=== PATIENT | female | born 1940 | race Caucasian/White ===

== ENCOUNTER 2016-05-16 17:11 | Emergency (ER) | payer OTHER ==
[2016-05-16 17:20] VITALS: BP 150/99; PULSE 95; RESP 18; TEMP 97.2; O2SAT 92
--- NOTE | 2016-05-16 17:21 | EDPHY ---
H & P Time Seen by Provider: 05/16/16 17:18 HPI/ROS: CHIEF COMPLAINT: Known DVT HISTORY OF PRESENT ILLNESS: 75-year-old female diagnosed with a DVT to the right lower extremity on outpatient [facility] ultrasound. She saw her primary care provider today, had an outpatient ultrasound obtained of right lower extremity as she has noticed 2 weeks of right ankle and calf swelling. Atraumatic. No history of mobilization or trauma. No long distance travel. No chest pain. She has a history of chronic dyspnea secondary to COPD and denies new dyspnea. No back pain. No syncope. No near syncope. No history of thromboembolic disorder. Patient was sent to the emergency department after ultrasound for further evaluation PRIMARY CARE PROVIDER: Dr. Berta Rogel , [facility] REVIEW OF SYSTEMS: A ten point review of systems was performed and is negative with the exception of the items mentioned in the HPI PAST MEDICAL & SURGICAL HISTORY: COPD SOCIAL HISTORY:nonsmoker PHYSICAL EXAM (Prior to examination, patient consented to physical exam, hands were washed and my usual and customary physical exam procedures followed) 1) GENERAL: Well-developed, well-nourished, alert and oriented. Appears to be in no acute distress. observed ambulating stable steady gait. Appears comfortable. 2) HEAD: Normocephalic, atraumatic 3) HEENT: Pupils equal, round, reactive to light bilaterally. Sclera anicteric. 4) NECK: Full range of motion, no meningeal signs. 5) LUNGS: Clear auscultation bilaterally, no wheezes, no rhonchi, no retractions. 6) HEART: Regular rate and rhythm, no murmur, no heave, no gallop. 7) ABDOMEN: No guarding, no rebound, no focal tenderness, negative McBurney's, negative Burkett's, negative Rovsing's, negative peritoneal sign, 8) MUSCULOSKELETAL: Right lower extremity: There is visible asymmetry to the right calf and the left calf. Compartments are soft. DP PT pulses bilaterally are brisk. Capillary refill is brisk. Color and temperature normally distally. 9) BACK: No CVA tenderness 10) SKIN: No rash, no petechiae. 11) Psychiatric: Patient is oriented X 3, there is no agitation. DIFFERENTIAL DIAGNOSIS: In no particular include but limited to DVT, phlegmasia cerulea dolens, phlegmasia alba dolens , arterial occlusion, compartment syndrome Constitutional: Initial Vital Signs Temperature (C) 36.2 C 05/16/16 17:18 Heart Rate 95 05/16/16 17:18 Respiratory Rate 18 05/16/16 17:18 Blood Pressure 150/99 H 05/16/16 17:18 O2 Sat (%) 92 05/16/16 17:18 O2 Delivery Mode Room Air Allergies/Adverse Reactions: No Known Allergies Allergy (Unverified 05/16/16 17:17) Home Medications: Medication Instructions Recorded Albuterol Hfa Anes Only [Proair 05/16/16 Hfa Icu (*)] Aspirin EC [Aspirin EC 81 mg (*)] 81 mg PO DAILY 05/16/16 Lisinopril [Zestril 20 mg (*)] 20 mg PO 05/16/16 Rivaroxaban [Xarelto 15mg (*)] 15 mg PO BID #0 tab 05/16/16 Medical Decision Making - Diagnostics Imaging: Right Lower Extremity Ultrasound and Venous Duplex Doppler Study History: Swelling. Comparison: None available. Technique: High frequency transducer was used for imaging and Doppler study of the veins of the lower extremity. Pulsed Doppler and color Doppler were utilized, along with various maneuvers to assess flow in the veins. Findings: There is DVT extending from the popliteal vein through the posterior tibial and peroneal veins throughout the calf. The common femoral and femoral veins are patent. The greater saphenous vein is patent. Subcutaneous edema is noted in the calf. Impression: DVT extending from the popliteal vein through the calf veins. Findings discussed with Zoie Greene's MA, 05/16/2016 at 16:52. At the request of the ordering clinician, the patient will be escorted to the ER. Findings were subsequently communicated to Fernanda Sagastume in the ED May 16, 2016at 1655 hours. Dictated By: Bruce Black MD Images reviewed by myself ED Course/Re-evaluation: Discussed case Dr. Fernanda Sagastume in the ER. Spoke with the on-call provider at [facility], Dr. Verna Fuentes at 5:42 p.m. who recommended starting the patient on Xarelto. Discussed the indications risks benefits of this medication with the patient and she is in agreement and consents. Patient given my usual and customary anticoagulant therapy precautions and instructions. Departure - Departure Disposition: Home, Routine, Self-Care Clinical Impression: Right leg DVT Qualifiers: Affected thrombotic vein of extremity: popliteal Chronicity: acute Qualified Code(s): I82.431 - Acute embolism and thrombosis of right popliteal vein Condition: Good Instructions: Deep Venous Thrombosis (ED) Additional Instructions: Return to the ER if you developed chest pain, shortness of breath, worsening leg swelling, leg discoloration. Do not engage in activities the high risk of falling or hitting her head. If you do hit your head I recommend you seek immediate medical attention. Prescriptions: Rivaroxaban [Xarelto 15mg (*)] 15 mg PO BID #0 tab
[2016-05-16] MEDS ORDERED: RIVAROXABAN 15 MG TAB PO ONE (17:54)
[2016-05-16 17:55] LABS: ADD DIFF? NO; ADD MORPH? NO; ADD SCAN? NO; ATYPICAL LYMPHOCYTE FLAG 30 (0-99); FRAGMENT RBC FLAG 0 (0-99); HEMATOCRIT 44.9 % (38.0-47.0); HEMOGLOBIN 15.8 g/dL (12.6-16.3); LEFT SHIFT FLG 0 (0-99); LIPEMIA HEMOLYSIS FLAG 90 (0-99); MEAN CELL HEMOGLOBIN 35.2 pg (27.9-34.1); MEAN CELL HEMOGLOBIN CONCENTR. 35.2 g/dL (32.4-36.7); PLATELET CLUMPS FLAG 0 (0-99); PLATELET COUNT 132 10^3/uL (150-400); RED BLOOD CELL COUNT 4.49 10^6/uL (4.18-5.33); RED CELL DISTRIBUTION WIDTH 13.7 % (11.5-15.2)
[2016-05-16 18:04] LABS: INR 0.96 (0.83-1.16); PROTIME(PATIENT) 12.7 SEC (12.0-15.0)
[2016-05-16 18:05] LABS: APTT 25.2 SEC (23.0-38.0)
[2016-05-16 18:08] LABS: ANION GAP 8 mEq/L (8-16); CALCIUM 10.4 mg/dL (8.5-10.4); CARBON DIOXIDE 25 mEq/l (22-31); CHLORIDE 104 mEq/L (97-110); CREATININE 0.7 mg/dL (0.6-1.0); GLOMERULAR FILTRATION RATE > 60; GLUCOSE 104 mg/dL (70-100); POTASSIUM 4.4 mEq/L (3.5-5.2); SODIUM 137 mEq/L (134-144)
== END 2016-05-16 18:06 | disposition home or self-care (01) ==
DX: I82.431 Acute embolism and thrombosis of right popliteal vein (principal); J44.9 Chronic obstructive pulmonary disease, unspecified

== ENCOUNTER → 2016-09-21 | Outpatient (CLI) | payer OTHER | LOC: FIMAGING 10:27 | PROVIDERS: ATTEND Nurse Practitioner | DX: R05 Cough (principal); Z87.891 Personal history of nicotine dependence; Z86.718 Personal history of other venous thrombosis and embolism ==

== ENCOUNTER → 2016-10-17 | Outpatient (CLI) | payer OTHER | LOC: FIMAGING 14:27 | PROVIDERS: ATTEND Internal Medicine Hematology & Oncology | DX: M79.89 Other specified soft tissue disorders (principal); Z86.718 Personal history of other venous thrombosis and embolism ==

== ENCOUNTER → 2016-11-05 | Outpatient (CLI) | payer OTHER ==
[~2016-11-05] MED LIST: IOPAMIDOL (ISOVUE 370) 100 ML BTL IV ONE
== END ==
LOC: FIMAGING 13:09
PROVIDERS: ATTEND Internal Medicine Hematology & Oncology
DX: J43.9 Emphysema, unspecified (principal); I25.10 Atherosclerotic heart disease of native coronary artery without angina pectoris
CPT/HCPCS: 71275; Q9967

== ENCOUNTER → 2017-01-09 | Outpatient (CLI) | payer OTHER | LOC: FIMAGING 13:06 | PROVIDERS: ATTEND Neurological Surgery | DX: M51.36 Other intervertebral disc degeneration, lumbar region (principal); M51.37 Other intervertebral disc degeneration, lumbosacral region; M41.86 Other forms of scoliosis, lumbar region ==

== ENCOUNTER → 2017-01-09 | Outpatient (CLI) | payer OTHER | LOC: FIMAGING 12:58 | PROVIDERS: ATTEND Internal Medicine | DX: Z12.31 Encounter for screening mammogram for malignant neoplasm of breast (principal) | CPT/HCPCS: G0202 ==

== ENCOUNTER → 2017-01-19 | Outpatient (CLI) | payer OTHER | LOC: FIMAGING 12:47 | PROVIDERS: ATTEND Neurological Surgery | DX: M51.36 Other intervertebral disc degeneration, lumbar region (principal); M48.061 Spinal stenosis, lumbar region without neurogenic claudication; M99.73 Connective tissue and disc stenosis of intervertebral foramina of lumbar region ==

== ENCOUNTER → 2017-02-28 | Outpatient (CLI) | payer OTHER | LOC: FIMAGING 02-26 14:05 | PROVIDERS: ATTEND Internal Medicine | DX: Z13.820 Encounter for screening for osteoporosis (principal); M81.0 Age-related osteoporosis without current pathological fracture ==

== ENCOUNTER 2018-03-08 08:49 | Emergency (ER) | payer OTHER ==
[2018-03-08 08:56] VITALS: BP 134/92
--- NOTE | 2018-03-08 09:32 | EDPHY ---
H & P Stated Complaint: cough/saw pcp tachycardia Time Seen by Provider: 03/08/18 09:23 HPI/ROS: CHIEF COMPLAINT: Rapid heart rate HISTORY OF PRESENT ILLNESS: 77-year-old female with COPD presents with rapid heart rate. Diagnosed with bronchitis 2 weeks ago. On home inhalers and prednisone. Stop prednisone yesterday. Was seen in her physician's office yesterday and her heart rate was high. Her doctor advised her to come to the emergency department. However, she felt like she was getting better, so decided not to come yesterday. She took the advice of her physician today and decided to get checked. The cough is improving and wheezing has almost completely resolved. No fever, dizziness or chest pain. Does not feel a rapid heart rate. REVIEW OF SYSTEMS: complete 10 point ROS reviewed and is negative except for the noted elements in the HPI - Personal History Current Tetanus Diphtheria and Acellular Pertussis (TDAP): Yes - Medical/Surgical History Hx Asthma: No Hx Chronic Respiratory Disease: Yes Hx Diabetes: No Hx Cardiac Disease: No Hx Renal Disease: No Hx Cirrhosis: No Hx Alcoholism: No Hx HIV/AIDS: No Hx Splenectomy or Spleen Trauma: No Other PMH: sciatica bronchitis dvt - Social History Smoking Status: Current every day smoker Constitutional: Initial Vital Signs Temperature (C) 36.4 C 03/08/18 08:53 Heart Rate 98 03/08/18 08:53 Respiratory Rate 18 03/08/18 08:53 Blood Pressure 134/92 H 03/08/18 08:53 O2 Sat (%) 95 03/08/18 08:53 O2 Delivery Mode Room Air Allergies/Adverse Reactions: No Known Allergies Allergy (Verified 03/08/18 08:50) Home Medications: Medication Instructions Recorded Albuterol Hfa Anes Only [Proair 05/16/16 Hfa Icu (*)] Lisinopril [Zestril 20 mg (*)] 20 mg PO 05/16/16 Prednisone 03/08/18 Medical Decision Making - Diagnostics EKG Interpretation: EKG interpreted by me reveals sinus rhythm, rate 97, poor R-wave progression, no ST or T segment changes. ED Course/Re-evaluation: This patient presents with bronchitis and rapid heart rate. Heart rate while I am interviewing her ranges from 85-97. Stat EKG reveals sinus rhythm, without evidence of dysrhythmia or ischemia. Given that the patient is in normal sinus rhythm and feels better overall after recent diagnosis of bronchitis, I will discharge her home. She does not want to pursue laboratory testing or chest x- ray. Departure - Departure Disposition: Home, Routine, Self-Care Clinical Impression: Bronchitis Condition: Good Instructions: Acute Bronchitis (ED) Additional Instructions: Your heart rate is a little high today, but within the normal range. This may be secondary to albuterol inhaler and prednisone. Drink plenty of fluids. Referrals: Berta Rogel MD [Primary Care Provider] - As per Instructions
--- NOTE | 2018-03-08 14:42 | CPEKG ---
Test Reason : OPEN Blood Pressure : / mmHG Vent. Rate : 097 BPM Atrial Rate : 097 BPM P-R Int : 166 ms QRS Dur : 079 ms QT Int : 343 ms P-R-T Axes : 080 -53 058 degrees QTc Int : 436 ms Sinus rhythm Probable left atrial enlargement Left axis deviation Anterior infarct, old Confirmed by Fernanda Sagastume ([id number]) on 03/08/2018 2:41:52 PM Referred By: Confirmed By:Fernanda Sagastume
== END 2018-03-08 09:49 | disposition home or self-care (01) ==
DX: J40 Bronchitis, not specified as acute or chronic (principal); J44.9 Chronic obstructive pulmonary disease, unspecified; F17.200 Nicotine dependence, unspecified, uncomplicated